=== PATIENT | male | born 1980 | race Caucasian/White ===

== ENCOUNTER 2018-08-11 11:53 | Emergency (ER) | payer OTHER ==
[~2018-08-11] VITALS: Ht 172.7 cm; Wt 108.9 kg
--- NOTE | 2018-08-11 12:02 | NUR ---
Patient to ER bed 8 to gown for evaluation. Side rails up. Report given to Rao ELIZABETH.
[2018-08-11 12:05] VITALS: BP_SYST 156
--- NOTE | 2018-08-11 12:10 | NUR ---
Patient comes to ER in personal vehicle brought in by , patient is AOx4, verbal and ambulatory. Patient comes to ER with laceration to LT hand, he cut hand with pocket knife while trying to cut a wire, [place] the [place] with [place]. No other injury or complaint at this time.
--- NOTE | 2018-08-11 12:15 | NUR ---
DR KELLY at bedside for ER evaluation
--- NOTE | 2018-08-11 12:17 | NUR ---
DR KELLY at bedside for suture of laceration
[2018-08-11] MEDS ORDERED: LIDOCAINE 1% 10 MG/ML, 20 ML MDV IJ ONE (12:45)
[2018-08-11] MEDS ORDERED: BACITRACIN 1 GM OINT TP ONE (12:45)
[2018-08-11] MEDS ORDERED: DIPH-TET-PERTUS Vaccine 0.5 ML VIAL (ADACEL) IM ONE (12:45)
[2018-08-11 12:55] VITALS: BP_SYST 146
--- NOTE | 2018-08-11 12:55 | NUR ---
Patient given written and verbal discharge instructions and verbalizes understanding. ER MD discussed with patient the results and treatment provided. Patient in stable condition. ID arm band removed. Rx of Augmentin, tylenol with codeine given. Patient educated on pain management and to follow up with PMD. Pain Scale 0/10. Opportunity for questions provided and answered. Medication side effect fact sheet provided.
== END 2018-08-11 12:55 | disposition home or self-care (01) ==
LOC: SED 11:53
DX: S61.412A Laceration without foreign body of left hand, initial encounter (principal); E78.5 Hyperlipidemia, unspecified; I10 Essential (primary) hypertension; F17.200 Nicotine dependence, unspecified, uncomplicated; Z71.6 Tobacco abuse counseling; W26.0XXA Contact with knife, initial encounter; Y93.89 Activity, other specified; Y92.89 Other specified places as the place of occurrence of the external cause; Y99.8 Other external cause status
CPT/HCPCS: 90715; 99283